=== PATIENT | male | born 1985 | race Caucasian/White ===

== ENCOUNTER → 2021-10-27 | Outpatient (CLI) | payer BC ==
--- NOTE | 2021-10-27 16:13 | CONS ---
CONSULTATION REASON FOR CONSULTATION: Sleep apnea. This is a 36-year-old male patient referred to me for sleep apnea evaluation. The patient works in a factory. He has to wake up early in the morning and he is typically on the road at around 4:30 a.m. He goes to bed around 10:30 p.m., waking up at 3:30 a.m. in the morning. 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 At any rate, the patient has been noted to snore at night and stop breathing on a few occasions. He is able to function well at work and he does not fall asleep on the job. At times while driving back home, which is a 30-minute drive, the patient struggles to stay awake. While playing video games or watching television he may fall asleep. No sleep paralysis. No hallucinations. No cataplexy. He has chronic back pain and hyperlipidemia. PAST MEDICAL HISTORY: Hyperlipidemia and chronic back pain. The patient is under the care of [facility]. He does have PAST SURGICAL HISTORY: Tonsillectomy, adenectomy. DRUG ALLERGIES: PENICILLINS. OUTPATIENT MEDICATIONS: Outpatient medications include Lipitor, vitamin D3, vitamin C and Centrum Silver. SOCIAL HISTORY: Positive smoking. No history of alcoholism. No history of IV drugs. FAMILY HISTORY: Negative for sleep apnea. REVIEW OF SYSTEMS: Fourteen-point review of systems was done. Among the positive findings are chronic pain of the back along with some muscle spasms. No sleep paralysis. No hallucinations. No cataplexy. No nocturnal dyspnea, chest pain or shortness of breath. PHYSICAL EXAMINATION: VITAL SIGNS: BP is 160/83, pulse 82, respirations 16, temperature 98.3, saturation 99% on room air. Height is 5 feet 7 inches, weight is 193, BMI 30.2. Neck size is 14-1/2 inches. GENERAL APPEARANCE: Calm, comfortable. HEAD: Atraumatic, normocephalic. Small mouth with crowding of posterior pharynx. No goiter or neck masses. Mallampati class IV. LUNGS: Clear to auscultation. Heart sounds are regular rate and rhythm. Normal S1, S2. No S3, S4. No murmurs. ABDOMEN: Soft, nontender. No organomegaly. EXTREMITIES: No edema. No cyanosis or clubbing. NEUROLOGIC: Awake and alert. There are no focal neurological deficits. IMPRESSION: 1. Hypersomnia. The patient obviously has a component of insufficient sleep syndrome, as the patient is unable to achieve more than 5 or 6 hours of sleep during the weekdays and he compensates over the weekends. At the same time, there may be a component of obstructive sleep apnea that needs to be further investigated. My suspicion is essentially low at this point in time. 2. Loud snoring. 3. History of daytime fatigue and some low degree of sleepiness with an [place] score of 6. 4. Chronic back pain. 5. Hyperlipidemia. PLAN: 1. Extend sleep hours to an average of 7 hours of sleep. To do so, the patient needs to go to bed earlier than 10:30 p.m. 2. Proceed with a home sleep study to evaluate this patient for obstructive sleep apnea and treat accordingly. 3. Implement good sleep hygiene measures. 4. Will continue to follow and make further recommendations based on the results of the sleep study. MMODL / IJN: [id number] /
== END ==
LOC: SLEEP 14:43
PROVIDERS: ATTEND Internal Medicine Critical Care Medicine
DX: G47.10 Hypersomnia, unspecified (principal); G89.29 Other chronic pain; M54.9 Dorsalgia, unspecified; E78.5 Hyperlipidemia, unspecified; Z88.0 Allergy status to penicillin
CPT/HCPCS: 99202